=== PATIENT | male | born 1995 | race Caucasian/White ===

== ENCOUNTER → 2019-05-29 | Outpatient (CLI) | payer OTHER ==
--- NOTE | 2019-05-29 14:00 | RADIOLOGY REPORT (SQ) ---
EXAM DESCRIPTION: DUPLEX ART/FACUNDO FLOW COMPLETE COMPLETED DATE/TIME: 05/29/2019 10:45 am REASON FOR STUDY: HTN COMPARISON: None. TECHNIQUE: Realtime and static grayscale images acquired. Selected color Doppler, velocities and spe ctral images recorded. LIMITATIONS: None. FINDINGS: RIGHT KIDNEY: RENAL ARTERY VELOCITIES: Renal artery origin and mid aspects are obscured. 100 Cm/sec at the hilum. Segmental artery velocity 44 cm/sec. RENAL VEIN: Color doppler flow present, patent. VELOCITY RATIO: 1.4. Normal waveforms. KIDNEY: Asymmetrically small measuring 9.7 cm. No significant pathology. LEFT KIDNEY: RENAL ARTERY VELOCITIES: Renal artery origin and mid aspects are obscured. 58 Cm/sec at the hilum. Segmental artery velocity 33 cm/sec. RENAL VEIN: Color doppler flow present, patent. VELOCITY RATIO: 0.83. Normal waveforms. KIDNEY: Unremarkable measuring 11.8 cm. No significant pathology. BLADDER: Normal. OTHER: Hypoechoic renal pyramids noted. IMPRESSION: 1. No Doppler evidence of significant renal artery stenosis. 2. Asymmetrically small right kidney measuring 9.7 cm. COMMENT: NORMAL RENAL ARTERY/AORTA VELOCITY RATIO IS LESS THAN OR EQUAL TO 3.5. TECHNICAL DOCUMENTATION: JOB ID: [id number] [employer]- All Rights Reserved Reading location - IP/workstation name: [email or web address]
== END ==
LOC: RAD 08:55
PROVIDERS: ATTEND Internal Medicine Clinical Cardiac Electrophysiology
DX: I10 Essential (primary) hypertension (principal)
CPT/HCPCS: 93975